=== PATIENT | female | born 1985 | race Caucasian/White ===

== ENCOUNTER 2018-02-18 07:13 | Inpatient (IN) | payer BC ==
[~2018-02-18] VITALS: Ht 162.6 cm; Wt 81.8 kg
[2018-02-18] VITALS (28 sets, daily range): BP systolic 93–121; BP diastolic 51–73; PULSE 66–82; TEMP 97.7–98.6
[~2018-02-18 07:13] MED LIST: MOTRIN 600600 MG/TAB PO; PERCOCET 325 MG1 TA2 PO; PRENATAL1 TA1; TEMOVATE0.052 TOP; UNISOM25 MG PO
[2018-02-18 09:12] LABS: BASO % 0.3 % (0.0-2.0); EOS % 0.6 % (0-4.0); GRAN # 4.7 (1.4-6.5); GRAN % 71.9 % (42.2-75.2); LYMPH # 1.2 (1.2-3.4); LYMPH % 18.6 % (20.0-51.0); MEAN CELL VOLUME 95 fl (80.0-100.0); MEAN CORPUSCULAR HGB CONC 34 g/dl (33.0-37.0); MEAN PLATELET VOLUME 9.4 fl (7.4-10.4); MONO # 0.5 (0.1-0.6); MONO % 7.8 % (1.7-9.3); PLATELET COUNT 269 K/mm3 (130-400); REDCELL DISTRIBUTION WIDTH-CV 13.4 % (11.5-14.5)
[2018-02-18 09:15] LABS: HEMATOCRIT 34.1 % (37.0-47.0); HEMOGLOBIN 11.7 g/dl (12.5-16.0); MEAN CORPUSCULAR HEMOGLOBIN 33 pg (27.0-31.0)
[2018-02-19 01:00] VITALS: BP 105/72; PULSE 70; TEMP 97.7
[2018-02-19 08:05] VITALS: BP 99/58; PULSE 80; TEMP 97.8
[2018-02-19] MEDS ORDERED: MOTRIN 600600 MG/TAB PO (09:01)
[2018-02-19] MEDS ORDERED: PERCOCET 325 MG1 TA2 PO (09:02)
[2018-02-19 11:30] VITALS: BP 96/52; PULSE 70; TEMP 97.7
[2018-02-19 16:52] VITALS: BP 92/51; PULSE 61; TEMP 98.1
[2018-02-19 21:00] VITALS: BP 110/59; PULSE 76; TEMP 97.8
[2018-02-20 07:08] VITALS: BP 108/68; PULSE 75; TEMP 97.8
[2018-02-20 07:28] VITALS: BP 118/58; PULSE 80; TEMP 97.5
== END 2018-02-20 12:15 | disposition home or self-care (01) | DRG 775 ==
LOC: LDR 07:13 → OB 16:55
PROVIDERS: Obstetrics & Gynecology
PROC: 10E0XZZ Delivery of Products of Conception, External Approach (ICD-10-PCS; principal; 2018-02-18)
PROC: 0W8NXZZ Division of Female Perineum, External Approach (ICD-10-PCS; 2018-02-18)
DX: O76 Abnormality in fetal heart rate and rhythm complicating labor and delivery (principal); O99.824 Streptococcus B carrier state complicating childbirth; Z3A.38 38 weeks gestation of pregnancy; Z37.0 Single live birth; Z88.0 Allergy status to penicillin
CPT/HCPCS: J2590; J2795; J3370; J7050; J7120

== ENCOUNTER → 2020-04-29 | Outpatient (CLI) | payer BC | LOC: COL.LAB 14:02 | DX: K52.9 Noninfective gastroenteritis and colitis, unspecified (principal); Z20.828 Contact with and (suspected) exposure to other viral communicable diseases ==

== ENCOUNTER → 2023-07-30 | Outpatient (CLI) | payer BC | LOC: COL.RAD 09:59 | DX: R10.11 Right upper quadrant pain (principal) | CPT/HCPCS: A9537-JZ; J2805 ==